=== PATIENT | male | born 1965 | race Caucasian/White ===

== ENCOUNTER 2019-11-01 12:01 | Day surgery (SDC) | payer BC ==
[~2019-11-01] VITALS: Ht 175.3 cm; Wt 69.0 kg
[~2019-11-01 12:01] MED LIST: ASPI81TA45 PO; BUPIVACAINE/PF 0.5% ONE; IBUP-1902 PO; MELA10TA PO; MULT-516 PO; TRAZ50TA66 PO
[2019-11-01] MEDS ORDERED: LACTATED RINGERS 1,000 ML IV SCH (12:40)
[2019-11-01 12:41] VITALS: BP 137/92
[2019-11-01] MEDS ORDERED: ACETAMINOPHEN 500 MG TABLET ONE (12:47)
[2019-11-01] MEDS ORDERED: SCOPOLAMINE PATCH, 1.5MG PATCH.TD72 TD ONE ×2 (12:48→13:00)
[2019-11-01] MEDS ORDERED: MIDAZOLAM 1 MG/ML, 2ML ONE (12:57)
[2019-11-01] MEDS ORDERED: FENTANYL PF 250 MCG/5ML ONE (12:57)
[2019-11-01] MEDS ORDERED: ACETAMINOPHEN 500 MG TABLET PO ONE (13:00)
[2019-11-01] MEDS ORDERED: EPINEPHRINE 1 MG/ML, 1ML INFIL ONE (14:18)
[2019-11-01] MEDS ORDERED: ONDANSETRON ODT 8 MG PO PRN (14:30)
[2019-11-01] MEDS ORDERED: CEFAZOLIN 1,000 MG ONE (14:30)
[2019-11-01] MEDS ORDERED: ONDANSETRON 2MG/ML, 2ML ONE (14:30)
[2019-11-01] MEDS ORDERED: PROPOFOL 10 MG/ML, 20ML ONE (14:30)
[2019-11-01] MEDS ORDERED: DEXAMETHASONE 4 MG/ML, 1ML ONE (14:30)
[2019-11-01] MEDS ORDERED: OXYcodone 5 MG/5 ML ORAL.SOL UDC PO PRN (14:30)
[2019-11-01] MEDS ORDERED: PROMETHAZINE 25 MG SUPP PR PRN (14:30)
[2019-11-01] MEDS ORDERED: ROCURONIUM 10MG/ML,5ML ONE (14:30)
[2019-11-01] MEDS ORDERED: ONDANSETRON 2MG/ML, 2ML IV PRN (14:30)
[2019-11-01] MEDS ORDERED: FENTANYL PF 100 MCG/2ML IV PRN (14:30)
[2019-11-01] MEDS ORDERED: LORazepam 2 MG/ML, 1ML IVPush PRN (14:30)
[2019-11-01] MEDS ORDERED: HYDROmorphone 1 MG/ML, 1ML INJ IVPush PRN (14:30)
[2019-11-01] MEDS ORDERED: NEOSTIGMINE 1 MG/ML, 10ML ONE (14:35)
[2019-11-01] MEDS ORDERED: GLYCOPYRROLATE 0.2MG/1ML, 5ML ONE (14:35)
== END 2019-11-01 16:40 | disposition home or self-care (01) ==
LOC: OUT 12:01
PROVIDERS: ATTEND Surgery
DX: K43.9 Ventral hernia without obstruction or gangrene (principal)
CPT/HCPCS: 49560; J0171; J0690; J1100; J2250; J2405; J2704; J2710; J3010; J7120